=== PATIENT | male | born 1990 | race Caucasian/White ===

== ENCOUNTER 2017-10-30 12:21 | Inpatient (IN) | payer SELFPAY ==
[~2017-10-30] VITALS: Ht 165.1 cm; Wt 92.5 kg
[2017-10-30 12:53] LABS: BASOPHILS % (AUTO) 0.1 % (0.0-2.0); EOSINOPHILS % (AUTO) 0.4 % (1.0-6.0); HEMATOCRIT 46.4 % (41-53); LYMPHOCYTES # (AUTO) 0.8 K/uL (1.0-4.8); LYMPHOCYTES % (AUTO) 4.9 % (22.0-44.0); MEAN CORPUSCULAR HEMOGLOBIN 30.8 pg (26.0-34.0); MEAN CORPUSCULAR HGB CONC 34.5 G/dL (31.0-37.0); MEAN CORPUSCULAR VOLUME 89 fL (80-100); MONOCYTES # (AUTO) 0.8 K/uL (0.1-1.0); MONOCYTES % (AUTO) 4.7 % (2.0-9.0); NEUTROPHILS # (AUTO) 14.4 K/uL (1.8-7.7); PLATELET COUNT (AUTO) 350 K/uL (150-450); RED BLOOD CELL COUNT(AUTO) 5.19 MIL/uL (4.50-5.90); RED CELL DISTRIBUTION WIDTH 12.4 % (11.5-14.5)
[2017-10-30 12:54] LABS: NEUTROPHILS % (AUTO) 89.9 % (40.0-70.0)
[2017-10-30 12:58] LABS: AMPHET/METH SCREEN,URINE NEGATIVE (NEGATIVE); BARBITURATE SCREEN, URINE NEGATIVE (NEGATIVE); BENZODIAZEPINES SCREEN,URINE NEGATIVE (NEGATIVE); CANNABINOID SCREEN,URINE POSITIVE (NEGATIVE); COCAINE SCREEN,URINE NEGATIVE (NEGATIVE); METHADONE SCREEN, URINE NEGATIVE (NEGATIVE); OPIATE SCREEN,URINE NEGATIVE (NEGATIVE)
[2017-10-30 12:59] LABS: PHENCYCLIDINE SCREEN,URINE NEGATIVE (NEGATIVE)
[2017-10-30 13:04] LABS: ANION GAP 10 mmol/L (8-16); CALCIUM, TOTAL 9.8 mg/dL (8.8-10.5); CARBON DIOXIDE 27 mmol/L (22-29); CHLORIDE 103 mmol/L (98-107); CREATININE 1.23 mg/dL (0.60-1.30); GLOMERULAR FILTR. RATE CALC > 60 mL/min (>60); GLUCOSE,RANDOM 106 mg/dL (70-110); POTASSIUM 3.7 mmol/L (3.5-5.1); SODIUM SERUM 140 mmol/L (136-145); UREA NITROGEN, BLOOD 17 mg/dL (7-18)
[2017-10-30 13:10] LABS: ALANINE AMINOTRANSFERASE 52 U/L (12-78); ALBUMIN 4.5 g/dL (3.4-5.0); ALKALINE PHOSPHATASE 79 U/L (46-116); ASPARTATE AMINOTRANSFERASE 26 U/L (15-37); BILIRUBIN,TOTAL 0.5 mg/dL (0.1-1.0); TOTAL PROTEIN, SERUM 8.6 g/dL (6.4-8.2)
[2017-10-30] MEDS ORDERED: LORazepam 1 MG TABLET PO ONE (14:30)
[2017-10-30] MEDS ORDERED: LORazepam 2 MG TABLET PO PRN (15:15)
[2017-10-30] MEDS ORDERED: OLANZapine 5 MG RAPDIS TABLET PO PRN (15:15)
[2017-10-30] MEDS: NICOTINE 14 MG/24 HOUR PATCH TD SCH (19:30)
[2017-10-30 19:34] VITALS: BP 122/73
[2017-10-30 22:00] LABS: CHOL/HDL RATIO 3.7 (4.2-7.3); CHOLESTEROL 186 mg/dL (131-200); HDL CHOLESTEROL 50 mg/dL (40-60); LDL CHOL (CALC.) 122 mg/dL (0-130); TRIGLYCERIDES 69 mg/dL (15-150)
[2017-10-30] MEDS: ZOLPIDEM TARTRATE 10 MG TABLET PO PRN (22:47)
[2017-10-31 05:41] VITALS: BP 157/80
[2017-10-31] MEDS ORDERED: PROMETHAZINE HCL 25 MG TABLET PO PRN (07:15)
[2017-10-31] MEDS ORDERED: GuaiFENesin/D-METHORPHAN [SUGAR-FREE] 200-20MG/10 ML SYRUP UDCUP PO PRN (07:15)
[2017-10-31] MEDS ORDERED: MAG HYDROX/AL HYDROX/SIMETH ES 30 ML SUSPENSION UDCUP PO PRN (07:15)
[2017-10-31] MEDS ORDERED: LOPERAMIDE HCL 2 MG CAPSULE PO PRN (07:15)
[2017-10-31] MEDS ORDERED: HydrOXYzine PAMOATE 50 MG CAPSULE PO PRN (07:15)
[2017-10-31] MEDS ORDERED: MAGNESIUM HYDROXIDE SUSPENSION 30 ML UDCUP PO PRN (07:15)
[2017-10-31] MEDS ORDERED: TUBERCULIN, PURIFIED PROTEIN DERIVATIVE 5 TU/0.1 ML SYG ID ONE (07:15)
[2017-10-31] MEDS ORDERED: ACETAMINOPHEN 325 MG TABLET PO PRN ×2 (07:15→20:45)
[2017-10-31] MEDS: FOLIC ACID 1 MG TABLET PO SCH (08:55)
[2017-10-31] MEDS: THIAMINE HCL 100 MG TABLET PO SCH ×2 (08:55→16:23)
[2017-10-31] MEDS: MULTIVITAMINS WITH MINERALS, THERAPEUTIC TABLET PO SCH (08:55)
[2017-10-31] MEDS: NALTREXONE HCL 50 MG TABLET PO SCH (08:56)
[2017-10-31] MEDS: FLUoxetine HCL 20 MG CAPSULE PO SCH (08:56)
[2017-10-31] MEDS: NICOTINE 14 MG/24 HOUR PATCH TD SCH (08:57)
[2017-10-31 09:56] VITALS: BP 118/79
[2017-10-31 17:14] VITALS: BP 128/85
[2017-10-31] MEDS ORDERED: IBUPROFEN 400 MG TABLET PO PRN (20:45)
[2017-10-31] MEDS: ZOLPIDEM TARTRATE 10 MG TABLET PO PRN (21:05)
[2017-11-01 06:19] VITALS: BP 126/80
[2017-11-01 08:19] VITALS: BP 146/86
[2017-11-01] MEDS: THIAMINE HCL 100 MG TABLET PO SCH ×2 (09:03→17:04)
[2017-11-01] MEDS: MULTIVITAMINS WITH MINERALS, THERAPEUTIC TABLET PO SCH (09:04)
[2017-11-01] MEDS: NALTREXONE HCL 50 MG TABLET PO SCH (09:04)
[2017-11-01] MEDS: FOLIC ACID 1 MG TABLET PO SCH (09:04)
[2017-11-01] MEDS: FLUoxetine HCL 20 MG CAPSULE PO SCH (09:04)
[2017-11-01] MEDS: NICOTINE 14 MG/24 HOUR PATCH TD SCH (09:08)
[2017-11-01 16:37] VITALS: BP 113/68
[2017-11-01] MEDS: ZOLPIDEM TARTRATE 10 MG TABLET PO PRN (21:16)
[2017-11-02] MEDS: NICOTINE 14 MG/24 HOUR PATCH TD SCH (08:52)
[2017-11-02] MEDS: THIAMINE HCL 100 MG TABLET PO SCH (08:52)
[2017-11-02] MEDS: FLUoxetine HCL 20 MG CAPSULE PO SCH (08:52)
[2017-11-02] MEDS: FOLIC ACID 1 MG TABLET PO SCH (08:53)
[2017-11-02] MEDS: MULTIVITAMINS WITH MINERALS, THERAPEUTIC TABLET PO SCH (08:53)
[2017-11-02] MEDS: NALTREXONE HCL 50 MG TABLET PO SCH (08:53)
[2017-11-02 08:56] VITALS: BP 115/71
[2017-11-02] MEDS ORDERED: FLUO-191 PO (11:18)
[2017-11-02] MEDS ORDERED: NALT50TA6 PO (11:18)
[2017-11-02] MEDS ORDERED: THIA100 PO (11:19)
[2017-11-02] MEDS ORDERED: FOLI1 PO (11:20)
== END 2017-11-02 15:00 | disposition home or self-care (01) | DRG 885 ==
LOC: EMS 12:29 → 3EI 14:59
PROVIDERS: ADMIT Psychiatry & Neurology Psychiatry; ATTEND Psychiatry & Neurology Psychiatry
DX: F33.9 Major depressive disorder, recurrent, unspecified (principal); Z91.19 Patient's noncompliance with other medical treatment and regimen; F12.10 Cannabis abuse, uncomplicated; F14.10 Cocaine abuse, uncomplicated; F17.210 Nicotine dependence, cigarettes, uncomplicated; K21.9 Gastro-esophageal reflux disease without esophagitis; Z87.11 Personal history of peptic ulcer disease
CPT/HCPCS: 84443; 99285; G0480